=== PATIENT | male | born 1955 | race Caucasian/White ===

== ENCOUNTER 2020-04-14 17:04 | Emergency (ER) | payer MEDICARE ==
[~2020-04-14] VITALS: Ht 185.4 cm; Wt 90.7 kg
[2020-04-14] MEDS ORDERED: NORCO 5-325 TA1 EAC1 PO ×2 (18:52→18:54)
[2020-04-14] MEDS ORDERED: KEFLEX500 M1 PO ×2 (18:52→18:54)
[2020-04-14 19:10] VITALS: BP 173/98
== END 2020-04-14 19:12 | disposition home or self-care (01) ==
LOC: M.ERS 17:04
DX: S71.111A Laceration without foreign body, right thigh, initial encounter (principal); S81.011A Laceration without foreign body, right knee, initial encounter; Z88.8 Allergy status to other drugs, medicaments and biological substances; W31.89XA Contact with other specified machinery, initial encounter; Y93.89 Activity, other specified; Y92.89 Other specified places as the place of occurrence of the external cause; Y99.8 Other external cause status